=== PATIENT | male | born 1995 | race Caucasian/White ===

== ENCOUNTER 2021-08-19 13:33 | Observation (INO) ==
[2021-08-19] MEDS ORDERED: SODIUM CHLORIDE 0.9% 2,000 ML IV STA (14:33)
[2021-08-19] MEDS ORDERED: ONDANSETRON ODT 4 MG TABLET PO STA (14:33)
[2021-08-19] MEDS ORDERED: HYDROmorphone 2 MG/1 ML VIAL IV STA ×3 (14:33→17:19)
[2021-08-19 15:07] LABS: Basophils % 0.5 % (0.0-0.8); Eosinophils # 0.2 10*3/uL (0.0-0.87); Eosinophils % 3.2 % (0.00-10.9); Hematocrit 43.4 VOL% (42.0-52.0); Hemoglobin 15.1 GM/DL (14.0-18.0); Immature Granulocytes Absolute 0.06 #; Lymphocytes # 1.3 10*3/uL (1.4-4.0); Lymphocytes % 21.5 % (21.2-54.2); Mean Corpuscular HGB Conc 34.8 GM/DL (32-36); Mean Corpuscular Volume 84.4 FL (87-102); Mean Platelet Volume 9.6 FL (9.6-12.0); Monocytes % 7.9 % (1.7-12.7); Neutrophils % 65.9 % (38.7-73.9); Platelet Count 259 T/CUMM (130-400); Red Blood Count 5.14 MC/CUMM (3.8-5.5); Red Cell Distribution Width 12.4 % (9.3-17.3); White Blood Count 5.9 T/CUMM (4-12)
[2021-08-19 15:36] LABS: Albumin 4.4 G/DL (3.4-5.0); Bilirubin,Total 0.7 MG/DL (0.20-1.00); Calcium 9.6 MG/DL (8.5-10.1); Osmolality,Calculated 267.2 MOS/KG (273-304); Potassium 3.8 MMOL/L (3.5-5.1); Total Protein 8.4 G/DL (6.4-8.2)
[2021-08-19] MEDS ORDERED: ACETAMINOPHEN 325 MG TABLET PO PRN (17:45)
[2021-08-19] MEDS ORDERED: HYDROmorphone 2 MG/1 ML VIAL IV PRN (17:45)
[2021-08-19 18:34] LABS: Basophils % 0.4 % (0.0-0.8); Eosinophils # 0.2 10*3/uL (0.0-0.87); Eosinophils % 3.8 % (0.00-10.9); Hematocrit 39.8 VOL% (42.0-52.0); Hemoglobin 13.9 GM/DL (14.0-18.0); Immature Granulocytes % 0.2 %; Immature Granulocytes Absolute 0.01 #; Lymphocytes # 1.2 10*3/uL (1.4-4.0); Lymphocytes % 27.4 % (21.2-54.2); Mean Corpuscular HGB Conc 34.9 GM/DL (32-36); Mean Corpuscular Volume 85.8 FL (87-102); Mean Platelet Volume 9.5 FL (9.6-12.0); Monocytes % 7.1 % (1.7-12.7); Neutrophils % 61.1 % (38.7-73.9); Platelet Count 214 T/CUMM (130-400); Red Blood Count 4.64 MC/CUMM (3.8-5.5); Red Cell Distribution Width 12.8 % (9.3-17.3); White Blood Count 4.5 T/CUMM (4-12)
[2021-08-19] MEDS: SODIUM CHLORIDE 0.9% 1,000 ML IV SCH (19:13)
[2021-08-19 19:17] LABS: Albumin 3.9 G/DL (3.4-5.0); Bilirubin,Total 0.6 MG/DL (0.20-1.00); Calcium 8.3 MG/DL (8.5-10.1); Osmolality,Calculated 273.7 MOS/KG (273-304); Potassium 3.9 MMOL/L (3.5-5.1); Total Protein 7.2 G/DL (6.4-8.2)
[2021-08-19] MEDS: ONDANSETRON 4 MG/2 ML VIAL IV PRN (19:22)
[2021-08-19] MEDS ORDERED: BISACODYL 5 MG TABLET PO SCH (22:10)
[2021-08-19] MEDS ORDERED: BISACODYL 5 MG TABLET PO PRN (23:00)
[2021-08-19] MEDS: HYDROmorphone 2 MG/1 ML VIAL IV PRN (23:34)
[2021-08-19] MEDS: DOCUSATE SODIUM 100 MG CAPSULE PO SCH (23:36)
[2021-08-19] MEDS: LIPASE PROTEASE AMYLASE PO SCH (23:38)
[2021-08-20] MEDS: ONDANSETRON 4 MG/2 ML VIAL IV PRN ×3 (00:40→16:33)
[2021-08-20] MEDS: SODIUM CHLORIDE 0.9% 1,000 ML IV SCH ×3 (03:40→20:41)
[2021-08-20] MEDS: HYDROmorphone 2 MG/1 ML VIAL IV PRN ×5 (03:43→20:40)
[2021-08-20] MEDS: DOCUSATE SODIUM 100 MG CAPSULE PO SCH ×2 (08:15→20:40)
[2021-08-20] MEDS: LIPASE PROTEASE AMYLASE PO SCH ×3 (08:15→20:40)
[2021-08-20] MEDS: PANTOPRAZOLE 40 MG TABLET PO SCH (08:15)
[2021-08-20] MEDS: LIPASE/PROTEASE/AMYLASE 4,200 UNITS CAPSULE PO SCH (16:32)
[2021-08-20] MEDS ORDERED: NORTRIPTYLINE 25 MG CAPSULE PO SCH (21:00)
[2021-08-20] MEDS ORDERED: METOPROLOL TARTRATE 25 MG TABLET PO SCH (21:00)
[2021-08-20] MEDS ORDERED: METOPROLOL TARTRATE 25 MG TABLET PO ONE (22:13)
[2021-08-20] MEDS: methylPREDNISolone SOD SUC 40 MG/1 ML VIAL IV SCH (23:28)
[2021-08-21] MEDS: HYDROmorphone 2 MG/1 ML VIAL IV PRN ×2 (00:42→07:04)
[2021-08-21] MEDS ORDERED: KETOROLAC 30 MG/1 ML VIAL ONE (04:44)
[2021-08-21] MEDS: SODIUM CHLORIDE 0.9% 1,000 ML IV SCH ×2 (04:47→12:13)
[2021-08-21] MEDS: KETOROLAC 15 MG/1 ML VIAL IV SCH ×2 (04:47→06:59)
[2021-08-21] MEDS: ONDANSETRON 4 MG/2 ML VIAL IV PRN (04:47)
[2021-08-21 06:46] LABS: Basophils % 0.3 % (0.0-0.8); Eosinophils % 0.3 % (0.00-10.9); Hematocrit 40.3 VOL% (42.0-52.0); Hemoglobin 13.7 GM/DL (14.0-18.0); Immature Granulocytes % 0.3 %; Immature Granulocytes Absolute 0.01 #; Lymphocytes # 0.8 10*3/uL (1.4-4.0); Lymphocytes % 21.9 % (21.2-54.2); Mean Corpuscular Volume 86.1 FL (87-102); Mean Platelet Volume 10.2 FL (9.6-12.0); Neutrophils % 71.2 % (38.7-73.9); Platelet Count 210 T/CUMM (130-400); Red Blood Count 4.68 MC/CUMM (3.8-5.5); Red Cell Distribution Width 12.4 % (9.3-17.3); White Blood Count 3.7 T/CUMM (4-12)
[2021-08-21 07:08] LABS: Albumin 3.6 G/DL (3.4-5.0); Bilirubin,Total 0.9 MG/DL (0.20-1.00); Calcium 9.3 MG/DL (8.5-10.1); Osmolality,Calculated 272.8 MOS/KG (273-304); Potassium 4.5 MMOL/L (3.5-5.1); Total Protein 7.9 G/DL (6.4-8.2)
[2021-08-21] MEDS ORDERED: oxyCODONE/ACETAMINOPHEN 5-325 MG TABLET PO ONE (08:51)
[2021-08-21] MEDS ORDERED: METOPROLOL TARTRATE 25 MG TABLET PO SCH (09:00)
[2021-08-21] MEDS: DOCUSATE SODIUM 100 MG CAPSULE PO SCH (09:31)
[2021-08-21] MEDS: PANTOPRAZOLE 40 MG TABLET PO SCH (09:31)
[2021-08-21] MEDS: LIPASE PROTEASE AMYLASE PO SCH (09:32)
[2021-08-21] MEDS: LIPASE/PROTEASE/AMYLASE 4,200 UNITS CAPSULE PO SCH ×2 (09:32→12:13)
[2021-08-21] MEDS: methylPREDNISolone SOD SUC 40 MG/1 ML VIAL IV SCH (10:51)
[2021-08-21 11:32] VITALS: BP 116/74
== END 2021-08-21 12:10 | disposition home or self-care (01) ==
LOC: N.ED 13:33 → N.EDINP 13:33 → N.5E 19:54
PROVIDERS: ADMIT Family Medicine; ATTEND Family Medicine

== ENCOUNTER 2022-07-15 13:33 | Observation (INO) ==
[2022-07-15 15:52] LABS: Bilirubin,Urine Negative (Negative); Blood, Urine Negative (Negative); Glucose,Urine (UA) Negative (Negative); Ketones,Urine Negative (Negative); Nitrite,Urine Negative (Negative); Protein,Urine Negative (Negative); Urine Appearance Clear (Clear); Urine Color Yellow (Yellow); Urine Specific Gravity 1.015 (1.001-1.035); Urine Urobilinogen 0.2 eU/dL (<2.0)
[2022-07-15 15:54] LABS: Mucus,Urine Occasional /LPF (Occasional); RBC,Urine <1 /HPF (0-4); Squamous Epithelial Cell,Urine Occasional /HPF (0-10)
[2022-07-15] MEDS ORDERED: ONDANSETRON 4 MG/2 ML VIAL IV STA (16:03)
[2022-07-15] MEDS ORDERED: SODIUM CHLORIDE 0.9% 1,000 ML IV STA (16:03)
[2022-07-15] MEDS ORDERED: PANTOPRAZOLE 40 MG VIAL IV STA (16:03)
[2022-07-15] MEDS ORDERED: METOCLOPRAMIDE 10 MG/2 ML VIAL IV STA (16:03)
[2022-07-15] MEDS ORDERED: HYDROmorphone 1 MG/1 ML SYRINGE IV STA ×2 (16:04→17:43)
[2022-07-15 16:21] LABS: Basophils % 0.4 % (0.0-0.8); Eosinophils # 0.2 10*3/uL (0.0-0.87); Eosinophils % 2.9 % (0.00-10.9); Hematocrit 44.8 VOL% (42.0-52.0); Hemoglobin 15.2 GM/DL (14.0-18.0); Immature Granulocytes % 0.4 %; Immature Granulocytes Absolute 0.03 #; Lymphocytes # 1.9 10*3/uL (1.4-4.0); Mean Corpuscular HGB Conc 33.9 GM/DL (32-36); Mean Platelet Volume 10.4 FL (9.6-12.0); Monocytes # 0.4 10*3/uL (0.11-0.8); Monocytes % 4.6 % (1.7-12.7); Neutrophils % 66.7 % (38.7-73.9); Platelet Count 212 T/CUMM (130-400); Red Blood Count 5.21 MC/CUMM (3.8-5.5); Red Cell Distribution Width 13.2 % (9.3-17.3); White Blood Count 7.6 T/CUMM (4-12)
[2022-07-15 16:39] LABS: Bilirubin,Total 0.8 MG/DL (0.20-1.00); Calcium 9.9 MG/DL (8.5-10.1); Potassium 4.3 MMOL/L (3.5-5.1); Total Protein 8.8 G/DL (6.4-8.2)
[2022-07-15] MEDS ORDERED: ACETAMINOPHEN 325 MG TABLET PO PRN (18:59)
[2022-07-15] MEDS: ENOXAPARIN 40 MG/0.4 ML SYRINGE SUBCUT SCH (22:17)
[2022-07-15] MEDS: DOCUSATE SODIUM 100 MG CAPSULE PO SCH (22:18)
[2022-07-15] MEDS: HYDROmorphone 1 MG/1 ML SYRINGE IV PRN (22:18)
[2022-07-15] MEDS: DEXTROSE 5% NACL 0.9% 1,000 ML IV SCH (22:20)
[2022-07-16] MEDS: HYDROmorphone 1 MG/1 ML SYRINGE IV PRN ×6 (02:37→23:59)
[2022-07-16] MEDS: ONDANSETRON 4 MG/2 ML VIAL IV PRN ×4 (02:37→23:59)
[2022-07-16 05:45] LABS: Basophils % 0.5 % (0.0-0.8); Eosinophils # 0.2 10*3/uL (0.0-0.87); Eosinophils % 4.7 % (0.00-10.9); Hematocrit 41.1 VOL% (42.0-52.0); Hemoglobin 13.9 GM/DL (14.0-18.0); Immature Granulocytes % 0.2 %; Immature Granulocytes Absolute 0.01 #; Lymphocytes # 1.9 10*3/uL (1.4-4.0); Lymphocytes % 43.2 % (21.2-54.2); Mean Corpuscular HGB Conc 33.8 GM/DL (32-36); Mean Platelet Volume 9.6 FL (9.6-12.0); Monocytes # 0.3 10*3/uL (0.11-0.8); Monocytes % 7.9 % (1.7-12.7); Neutrophils % 43.5 % (38.7-73.9); Platelet Count 203 T/CUMM (130-400); Red Blood Count 4.78 MC/CUMM (3.8-5.5); White Blood Count 4.3 T/CUMM (4-12)
[2022-07-16] MEDS: DEXTROSE 5% NACL 0.9% 1,000 ML IV SCH ×4 (06:10→23:52)
[2022-07-16 06:13] LABS: Albumin 3.7 G/DL (3.4-5.0); Bilirubin,Total 0.7 MG/DL (0.20-1.00); Calcium 8.9 MG/DL (8.5-10.1); Osmolality,Calculated 272.8 MOS/KG (273-304); Potassium 3.8 MMOL/L (3.5-5.1); Total Protein 7.5 G/DL (6.4-8.2)
[2022-07-16 06:23] LABS: Risk Ratio 3.76; VLDL Cholesterol 25.4 MG/DL
[2022-07-16] MEDS: PANTOPRAZOLE 40 MG TABLET PO SCH (08:19)
[2022-07-16] MEDS: METOPROLOL TARTRATE 25 MG TABLET PO SCH ×3 (08:19→19:59)
[2022-07-16] MEDS: DOCUSATE SODIUM 100 MG CAPSULE PO SCH ×3 (08:19→19:59)
[2022-07-16] MEDS ORDERED: oxyCODONE/ACETAMINOPHEN 5-325 MG TABLET PO PRN (10:26)
[2022-07-16] MEDS: ENOXAPARIN 40 MG/0.4 ML SYRINGE SUBCUT SCH (19:55)
[2022-07-16] MEDS ORDERED: NORTRIPTYLINE 25 MG CAPSULE PO SCH (21:00)
[2022-07-17] MEDS: ENOXAPARIN 40 MG/0.4 ML SYRINGE SUBCUT SCH (01:50)
[2022-07-17] MEDS: HYDROmorphone 1 MG/1 ML SYRINGE IV PRN (06:08)
[2022-07-17] MEDS: DEXTROSE 5% NACL 0.9% 1,000 ML IV SCH ×2 (07:39→11:31)
[2022-07-17] MEDS: DOCUSATE SODIUM 100 MG CAPSULE PO SCH (09:22)
[2022-07-17] MEDS: PANTOPRAZOLE 40 MG TABLET PO SCH (09:22)
[2022-07-17] MEDS: METOPROLOL TARTRATE 25 MG TABLET PO SCH (09:23)
[2022-07-17] MEDS ORDERED: HYDROmorphone 1 MG/1 ML SYRINGE IV PRN (10:37)
[2022-07-17] MEDS ORDERED: HYDROmorphone 1 MG/1 ML SYRINGE IV SCH (14:00)
[2022-07-17 16:09] VITALS: BP 129/91
== END 2022-07-17 16:00 | disposition home or self-care (01) ==
LOC: N.ED 13:33 → N.2W 13:33
PROVIDERS: ADMIT Family Medicine; ATTEND Family Medicine